=== PATIENT | female | born 1955 | race Caucasian/White ===

== ENCOUNTER 2019-05-30 14:05 | Emergency (ER) | payer OTHER ==
[~2019-05-30] VITALS: Ht 152.4 cm; Wt 81.6 kg
[~2019-05-30 14:05] MED LIST: BENA10TA4 PO; CALC-385 PO; CEPH500C PO; IBUP-1542 PO; MTF1000T PO; MULT-542 PO; PANT40TA4 PO; PIOG30TA71 PO; SIMV80TA18 PO
[2019-05-30 14:12] VITALS: Ht 152.4 cm; Wt 81.6 kg
[2019-05-30] MEDS ORDERED: ACETAMINOPHEN 325 MG TAB PO STA (14:37)
[2019-05-30] MEDS ORDERED: SODIUM CHLORIDE 0.9% 1L BAG IV* STA (14:37)
[2019-05-30] MEDS ORDERED: IBUPROFEN 600 MG TAB PO ONE (19:30)
--- NOTE | 2019-05-30 20:10 | ERD ---
ER Documentation Chief Complaint Chief Complaint TOVAR, r ear pain, diarrhea, abd pain x 3 days; currently beingtreated for UTI HPI 63-year-old female presenting with complaints of generalized body aches and a moderate headache that started about 3 days ago. She has had intermittent abdominal pain as well with nausea but no vomiting. About 5 days ago she was seen by her primary care doctor and diagnosed with a UTI for which she is on Keflex at this time. However at that time she did not have a fever. She also did not have any dysuria or hematuria and no flank pain. Currently she does not complain of any pain at any one site on her body. She states the whole body hurts. No location that is more than any other location. No alleviating or exacerbating factors. She has not tried to take any [id number] medications for her symptoms. No neck stiffness reported. No photophobia. ROS All systems reviewed and are negative except as per history of present illness. Medications Home Meds Active Scripts Ibuprofen* (Motrin*) 600 Mg Tab, 600 MG PO Q6H PRN for PAIN AND OR ELEVATED TEMP, #30 TAB Prov:BIJAL COFFEY MD 05/30/19 Reported Medications Calcium Carbonate/Vitamin D3 (OYSTER SHELL CALCIUM + D TAB) 1 Each Tablet, 1 EACH PO, TAB 05/30/19 Multivitamin* (Daily Value*) 1 Each Tablet, 1 TAB PO DAILY, TAB 05/30/19 Benazepril Hcl* (Benazepril Hcl*) 10 Mg Tablet, 10 MG PO DAILY, #30 TAB 05/30/19 Pioglitazone Hcl* (Pioglitazone Hcl*) 30 Mg Tablet, 30 MG PO QHS, TAB 05/30/19 Cephalexin* (Cephalexin*) 500 Mg Capsule, 500 MG PO QID, #28 CAP 05/30/19 Metformin* (Glucophage*) 1,000 Mg Tablet, 1000 MG PO BID, #60 TAB 05/30/19 Simvastatin* (Simvastatin*) 80 Mg Tablet, 40 MG PO QHS, #30 TAB 05/30/19 Pantoprazole* (Pantoprazole*) 40 Mg Tablet.dr, 40 MG PO DAILY, TAB 05/30/19 Allergies Allergies: Coded Allergies: No Known Allergy (Unverified , 05/30/19) PMhx/Soc Medical and Surgical Hx: pt denies Surgical Hx History of Surgery: Yes Hx Cardiac Disorders: Yes (cholesterol) Hx Miscellaneous Medical Probl: Yes (Diabetes) Hx Alcohol Use: No Hx Substance Use: No Hx Tobacco Use: No Smoking Status: Never smoker FmHx Family History: No diabetes Physical Exam Vitals Vital Signs Date Temp Pulse Resp B/P (MAP) Pulse Ox O2 O2 Flow FiO2 Time Delivery Rate 05/30/19 78 16 112/76 98 Room Air 20:18 (88) 05/30/19 98.5 89 18 127/72 19:51 (90) 05/30/19 94 24 127/73 94 Nasal 4.0 17:10 (91) Cannula 05/30/19 38.0 15:15 05/30/19 100.4 96 16 132/79 98 Room Air 15:14 (96) 05/30/19 101.1 113 20 151/65 95 14:12 (93) Physical Exam Const: No acute distress, well-appearing, nontoxic Head: Atraumatic Eyes: Normal Conjunctiva ENT: Normal External Ears, Nose and Mouth. Posterior oropharynx normal Neck: Full range of motion. No meningismus. Resp: Clear to auscultation bilaterally Cardio: Tachycardic with regular rhythm, no murmurs Abd: Soft, non tender, non distended. Negative McBurney's point tenderness. No Hernandez sign. No peritoneal signs. Normal bowel sounds Skin: No petechiae or rashes Back: No midline or flank tenderness. Diffuse muscular tenderness Ext: No cyanosis, or edema Neur: Awake and alert, oriented, normal speech, no facial asymmetry, moving all extremities Psych: Normal Mood and Affect Result Diagram: 05/30/19 1505 05/30/19 1505 Results 24 hrs Laboratory Tests Test 05/30/19 15:02 05/30/19 15:05 05/30/19 15:14 05/30/19 16:29 Urine Color ADARSH Urine Clarity CLOUDY Urine pH 5.0 Urine Specific 1.028 [place] Urine Ketones TRACE mg/dL Urine Nitrite NEGATIVE mg/dL Urine Bilirubin NEGATIVE mg/dL Urine Urobilinogen NEGATIVE mg/dL Urine Leukocyte NEGATIVE Garrett/ul Esterase Urine Microscopic 2 /HPF RBC Urine Microscopic 2 /HPF WBC Urine Squamous FEW /HPF Epithelial Cells Urine Bacteria FEW /HPF Urine Mucus MODERATE /HPF Urine Hemoglobin NEGATIVE mg/dL Urine Glucose 1+ mg/dL Urine Total Protein 1+ mg/dl White Blood Count 5.2 10^3/ul Red Blood Count 4.94 10^6/ul Hemoglobin 14.2 g/dl Hematocrit 43.5 % Mean Corpuscular 88.1 fl Volume Mean Corpuscular 28.7 pg Hemoglobin Mean Corpuscular 32.6 g/dl Hemoglobin Concent Red Cell 12.9 % Distribution Width Platelet Count 191 10^3/UL Mean Platelet 11.5 fl Volume Immature 0.200 % Granulocytes % Neutrophils % 69.1 % Lymphocytes % 21.4 % Monocytes % 8.3 % Eosinophils % 0.8 % Basophils % 0.2 % Nucleated Red Blood 0.0 /100WBC Cells % Immature 0.010 10^3/ul Granulocytes # Neutrophils # 3.6 10^3/ul Lymphocytes # 1.1 10^3/ul Monocytes # 0.4 10^3/ul Eosinophils # 0.0 10^3/ul Basophils # 0.0 10^3/ul Nucleated Red Blood 0.0 10^3/ul Cells # Sodium Level 138 mmol/L Potassium Level 4.4 mmol/L Chloride Level 100 mmol/L Carbon Dioxide 27 mmol/L Level Anion Gap 11 Blood Urea Nitrogen 15 mg/dl Creatinine 0.58 mg/dl Est Glomerular > 60 mL/min Filtrat Rate mL/min Glucose Level 238 mg/dl Calcium Level 9.5 mg/dl Total Bilirubin 0.8 mg/dl Direct Bilirubin 0.00 mg/dl Indirect Bilirubin 0.8 mg/dl Aspartate Amino 27 IU/L Transf (AST/SGOT) Alanine 37 IU/L Aminotransferase (A LT/SGPT) Alkaline 102 IU/L Phosphatase Total Protein 7.9 g/dl Albumin 4.5 g/dl Globulin 3.40 g/dl Albumin/Globulin 1.32 Ratio POC Venous Lactate 1.5 mmol/L Lactic Acid Level 1.1 mmol/L Test 05/30/19 18:51 Lactic Acid Level 1.1 mmol/L Current Medications Medications Dose Sig/Annette Start Time Status Last (Trade) Ordered Route PRN Stop Time Admin Dose Reason Admin 650 mg ONCE STAT 05/30/19 DC 05/30/19 Acetaminophen PO 14:37 05/30/19 15:15 (Tylenol 14:39 Tab) Sodium 1,370 ml BOLUS OVER 2 05/30/19 DC 05/30/19 Chloride HOURS STAT 14:37 05/30/19 15:15 (NS) IV* 14:39 Ibuprofen 600 mg ONCE ONCE 05/30/19 DC 05/30/19 (Motrin) PO 19:30 05/30/19 19:15 19:31 Procedures/MDM EMERGENT LABS AND DIAGNOSTIC STUDIES: Lab Results above were reviewed and interpreted by me. CBC: no anemia or evidence of infection CMP: No evidence of clinically significant electrolyte abnormality, acidosis, renal failure, hypoglycemia, liver disease, or biliary obstruction Lipase: no evidence of pancreatitis Troponin within normal limits, not indicative of cardiac ischemia Lactate within normal limits without evidence of sepsis or tissue hypoperfusion UA: no evidence of infection Radiology Results as interpreted by Radiology below were reviewed by Damián Coffey MD: Chest x-ray shows no acute abnormalities Initial Nursing notes reviewed. Previous Medical Records requested via the Electronic Health Record. EMERGENCY DEPARTMENT COURSE / MEDICAL DECISION MAKING: Patient is presenting with fever and body aches. No evidence of severe sepsis or septic shock at this time. No evidence of serious bacterial infection on work-up. I suspect she is most likely suffering from a viral syndrome. Doubt pyelonephritis or UTI. Treated with medications for her symptoms. Recommended plenty of rest and continued outpatient follow-up if her symptoms do not improve. Advised to return to the ER for any worsening symptoms. Patient's blood pressure was elevated (>120/80) but appears stable without evidence of hypertensive emergency or urgency. The patient was counseled about the risks of hypertension and urged to pursue outpatient monitoring and therapy within a week with their primary care physician. Departure Diagnosis: Primary Impression: Myalgia Additional Impression: Acute febrile illness Condition: Stable Patient Instructions: Febrile Illness, Uncertain Cause (Adult) Additional Instructions: Regrese a estas instalaciones si no se mejora yoon esperbamos o yoon le silviomos. BIJAL COFFEY MD May 30, 2019 20:10
[2019-05-30 20:18] VITALS: BP 112/76; PULSE 78; RESP 16
== END 2019-05-30 20:19 | disposition home or self-care (01) ==
LOC: E/R 14:05
DX: M79.10 Myalgia, unspecified site (principal); R06.02 Shortness of breath; Z79.84 Long term (current) use of oral hypoglycemic drugs
CPT/HCPCS: 36415; 71045; 80053; 81001; 83605; 85025; 87040; 87086; J7030; Z7502; Z7610